=== PATIENT | female | born 1965 | race African-American/Black ===

== ENCOUNTER → 2017-02-03 | Outpatient (CLI) | payer BC ==
--- NOTE | ~2017-02-03 | CR169 ---
[facility] A Service of [facility] RADIOLOGY TEXT RESULTS PATIENT: GRETA RAMOS LOCATION: [facility] : 67 UNIT #: [id number] AGE: [address]: FERDINAND PIERCE APRN SEX: F ORDER DR: [id number] [facility] [address] [place], [place] [address] [id number] O MR#: [id number] Acc #: [id number] NAME: GRETA RAMOS : 1965 SEX: F STUDY DATE/TIME: 02/03/2017 10:08 UNIT: [facility] ROOM: STUDY DESCRIPTION: CR Knee 2 Views Lt Attending Physician: Ferdinand Pierce A.P.R.N. Referring Physician: Ferdinand Pierce A.P.R.N. Ordering Physician: Ferdinand Pierce A.P.R.N. Primary Care Physician: Primary Care Physician No MEDICAL IMAGING REPORT This report is preliminary unless electronic signature is present EXAM Left knee 2 views, 02/03/2017 10:08 a.m. HISTORY Order states pain in right knee. History sheet states right knee pain for 4 months. No injury reported. FINDINGS No fracture, osseous lesion, or arthritic change is identified. There is no obvious effusion or soft tissue abnormality. IMPRESSION Negative left knee. Dictated by... Mima Pena M.D. THIS IS AN ELECTRONICALLY VERIFIED REPORT Mima Pena M.D. at 02/04/2017 9:09 AM Clark TD: 02/03/2017 15:36 JOB #: [id number] MEDICAL IMAGING REPORT Page 1 of 1 COPY
--- NOTE | ~2017-02-03 | CR170 ---
[facility] A Service of [facility] RADIOLOGY TEXT RESULTS PATIENT: GRETA RAMOS LOCATION: [facility] : 67 UNIT #: [id number] AGE: [address]: FERDINAND PIERCE APRN SEX: F ORDER DR: [id number] [facility] [address] [place], [place] [address] [id number] O MR#: [id number] Acc #: [id number] NAME: GRETA RAMOS : 1965 SEX: F STUDY DATE/TIME: 02/03/2017 10:08 UNIT: [facility] ROOM: STUDY DESCRIPTION: CR Knee 2 Views Rt Attending Physician: Ferdinand Pierce Referring Physician: Ferdinand Pierce Ordering Physician: Ferdinand Pierce A.P.R.N. Primary Care Physician: Primary Care Physician No MEDICAL IMAGING REPORT This report is preliminary unless electronic signature is present EXAM Right knee 2 views 02/03/2017 10:08 a.m. HISTORY Order states pain. History sheet states pain for 4 months. No injury. FINDINGS No fracture, dislocation, joint effusion, or osseous abnormality is noted. IMPRESSION Negative right knee. Dictated by... Mima Pena M.D. THIS IS AN ELECTRONICALLY VERIFIED REPORT Mima Pena M.D. at 02/04/2017 9:09 AM C/to TD: 02/03/2017 15:59 JOB #: [id number] MEDICAL IMAGING REPORT Page 1 of 1 COPY
== END | disposition home or self-care (01) ==
LOC: CRAD 09:46
DX: M25.561 Pain in right knee (principal)
CPT/HCPCS: 73560